=== PATIENT | male | born 1950 | race Caucasian/White ===

== ENCOUNTER 2016-08-20 07:09 | Day surgery (SDC) | payer OTHER ==
[2016-08-20] VITALS (7 sets, daily range): BP systolic 104–131; BP diastolic 61–77
[~2016-08-20] VITALS: Ht 170.2 cm; Wt 71.2 kg
[~2016-08-20 07:09] MED LIST: FLONASE ALLERG9.9 ML NS; LOSARTAN POTASS50 MG ORAL; ZOCOR20 M1 ORAL; ZYRTEC10 MG ORAL
[2016-08-20] MEDS ORDERED: ASPIR 8181 MG ORAL (07:42)
--- NOTE | 2016-08-20 07:42 | Pre-Procedure Note/Attestation ---
Pre-Procedure Note/Attestation Complete Prior to Procedure Planned Procedure: not applicable Procedure Narrative: colonoscopy Indications for Procedure Pre-Operative Diagnosis: screening Attestation I attest that I discussed the nature of the procedure; its benefits; risks and complications; and alternatives (and the risks and benefits of such alternatives ), prior to the procedure, with the patient (or the patient's legal food service representative). I attest that, if there was a reasonable possibility of needing a blood transfusion, the patient (or the patient's legal food service representative) was given the [facility] standardized written summary, pursuant to the Shai Mar-Mac Blood Safety Act ([place] Health and Safety Code # 1645, as amended). I attest that I re-evaluated the patient just prior to the surgery and that there has been no change in the patient's H&P, except as documented below: WHIT MACK August 20, 2016 07:42
--- NOTE | 2016-08-20 07:43 | Short Stay Surgery H&P ---
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 Colon Screening Patient History Allergies: Coded Allergies: No Known Allergies (Unverified , 04/17/16) PAST MEDICAL HISTORY: (1) HTN (hypertension) (2) Hypercholesteremia Past Surgeries: Social History: Medication History Scheduled Cetirizine Hcl* (Zyrtec*), 10 MG ORAL DAILY, (Reported) Fluticasone Propionate (Flonase Allergy Relief), 9.9 ML NS DAILY, (Reported) Losartan Potassium* (Losartan Potassium*), 50 MG ORAL DAILY, (Reported) Simvastatin (Zocor), 20 MG ORAL BEDTIME, (Reported) Review of Systems Cardiovascular: Reports: no symptoms Respiratory: Reports: no symptoms Skeletal: Reports: no symptoms Gastrointestinal: Reports: no symptoms Genitourinary: Reports: no symptoms Neurologic: Reports: no symptoms Endocrine: Reports: no symptoms Hematologic: Reports: no symptoms Physical Exam Skin: normal HENT: normal Heart: normal Lungs: normal Abdomen: normal Extremities: normal Plan Plan of Care colonoscopy Final Diagnosis: Attestation Are the patient's medical conditions optimized for surgery? Attestation Response: yes WHIT MACK August 20, 2016 07:43
[2016-08-20] MEDS ORDERED: LR 1000ml ONE (08:00)
[2016-08-20] MEDS ORDERED: Midazolam 2mg/2ml Inj ONE (08:00)
[2016-08-20] MEDS ORDERED: Propofol 10mg/ml 20ml IV ONE (08:00)
[2016-08-20] MEDS ORDERED: fentaNYL 100 mcg/2 mL IV ONE (08:00)
[2016-08-20] MEDS ORDERED: LR 1000ml 1,000 ML IVLG SCH (08:25)
--- NOTE | 2016-08-20 08:25 | Anethesia Preoperative Eval ---
Anesthesia Pre-op PMH/ROS General Date of Evaluation: August 20, 2016 Time of Evaluation: 08:10 Anesthesiologist: Maryan ASA Score: ASA 2 Mallampati Score Class I : Soft palate, uvula, fauces, pillars visible Class II: Soft palate, uvula, fauces visible Class III: Soft palate, base of uvula visible Class IV: Only hard plate visible Mallampati Classification: Class II Surgeon: Matias Diagnosis: Colon CA screning Surgical Procedure: Colonoscopy Anesthesia History: none Family History: no anesthesia problems Allergies: Coded Allergies: No Known Allergies (Unverified , 04/17/16) Medications: see eMAR Past Medical History Cardiovascular: Reports: HTN, Denies: CAD, TN, arrhythmia, other, valve dz Pulmonary: Denies: COPD, TONYA, asthma, other Gastrointestinal/Genitourinary: Reports: GERD, Denies: CRI, ESRD, other Neurologic/Psychiatric: Denies: CVA, TIA, dementia, depression/anxiety, other Endocrine: Denies: DM, hypothyroidism, other, steroids HEENT: Denies: [place] (L), [place] (R), cataract (L), cataract (R), glaucoma, other Hematology/Immune: Denies: DVT, anemia, bleeding disorder, other Musculoskeletal/Integumentary: Denies: DDD, DJD, OA, RA, edema, other PMH Narrative: as above PSxH Narrative: see chart Anesthesia Pre-op Phys. Exam Physician Exam Last Vital Signs Date Time Temp Pulse Resp B/P Pulse Ox O2 Delivery O2 Flow Rate FiO2 08/20/16 07:47 97.3 48 20 122/77 98 Room Air Constitutional: NAD Neurologic: CN 2-12 intact Cardiovascular: RRR, no M/R/G Respiratory: CTA Gastrointestinal: S/NT/ND Airway Exam Mallampati Score: Class II MO: full Neck: flexible ROM: full Teeth: intact Dentures: no lower, no upper Anesthesia Pre-op A/P Risk Assessment & Plan Assessment: ASA 2 Plan: JASON GARCIA M.D. August 20, 2016 08:25
[2016-08-20] MEDS ORDERED: fentaNYL 100 mcg/2 mL IV PRN (08:30)
--- NOTE | 2016-08-20 08:48 | Endoscopy Procedure Note ---
Endoscopy Procedure Note Indication for Procedure: screening colon Procedures Performed: colonoscopy Operative Findings/Diagnosis: one polyp Specimen: yes Pt Tolerated Procedure Well: Yes Estimated Blood Loss: none Anesthesiologist: christiano Anesthesia: MAC Implant(s) used?: No 50 yrs or older w/o bx or poly: Not Applicable 10yrs. F/U not recommended: Not Applicable WHIT MACK August 20, 2016 08:48
--- NOTE | 2016-08-20 10:55 | Immediate Post-Op Evaluation ---
Immediate Post-Op Evalulation Immediate Post-Op Evalulation Procedure: Colonoscopy Date of Evaluation: August 20, 2016 Time of Evaluation: 08:48 IV Fluids: 500 Blood Products: nne Estimated Blood Loss: none Urinary Output: none Blood Pressure Systolic: 104 Blood Pressure Diastolic: 58 Pulse Rate: 48 Respiratory Rate: 20 O2 Sat by Pulse Oximetry: 99 Temperature (Fahrenheit): 97.6 Pain Score (1-10): 1 Nausea: No Vomiting: No Complications none Patient Status: awake, patent, none Hydration Status: adequate JASON PATRICK M.D. August 20, 2016 10:55
--- NOTE | 2016-08-20 10:57 | 48 Hour Post Anesthesia Eval ---
Post Anesthesia Evaluation Procedure: Colonoscopy Date of Evaluation: August 20, 2016 Time of Evaluation: 10:55 Blood Pressure Systolic: 110 0: 65 Pulse Rate: 58 Respiratory Rate: 20 Temperature (Fahrenheit): 97.2 O2 Sat by Pulse Oximetry: 99 Airway: patent Nausea: No Vomiting: No Pain Intensity: 1 Hydration Status: adequate Cardiopulmonary Status: stable Mental Status/LOC: patient returned to baseline Follow-up Care/Observations: n/a Post-Anesthesia Complications: none Follow-up care needed: ready to discharge JASON PATRICK M.D. August 20, 2016 10:56
--- NOTE | 2016-08-20 21:58 | Procedure Note ---
DATE OF PROCEDURE: 08/20/2016 SURGEON: Mendoza Salcedo M.D. PROCEDURE: Colonoscopy and biopsy. ANESTHESIOLOGIST: Carl Steinberg M.D. INSTRUMENT: Olympus adult flexible colonoscope. INDICATION: Screening colonoscopy evaluation. REASON FOR PROCEDURE: The procedure, risks, benefits, and possible consequences, including hemorrhage, aspiration, perforation and infection, and alternative treatments, were explained to the patient/legal guardian by Dr. Mendoza Salcedo and the patient/legal guardian understood and accepted these risks. DESCRIPTION OF PROCEDURE: After informed consent was obtained and the patient was adequately sedated, first rectal exam was performed which was normal. Then, the scope was advanced from the rectum into the cecum, then subsequently terminal ileum. Quality of prep was good. The patient had normal terminal ileum mucosa, no obvious polyp or mass was seen in the terminal ileum. At this time, the scope was gradually retrieved and colonic mucosa was carefully examined. The patient had one diminutive polyp in the descending colon, which was removed with cold biopsy forceps technique. Otherwise, the rest of colonoscopy exam was grossly within normal limits. Retroflexion of rectum showed evidence of internal hemorrhoids. FINDINGS: 1. Normal colonoscopy examination except for one small polyp in the descending colon. 2. Internal hemorrhoids. RECOMMENDATIONS: 1. Follow up biopsy results and treat accordingly. 2. We will recommend repeat colonoscopy in 5 years given the one polyp. 3. Given internal hemorrhoids, we will treat if symptomatic. I want to thank Dr. Jacquelin Kim for this kind referral. Mendoza Salcedo M.D. DR: Wayne JOB#: [id number] CC: Jacquelin Kim M.D.; Fax#: [phone]
== END 2016-08-20 09:55 | disposition home or self-care (01) ==
LOC: GAS 07:09
DX: Z12.11 Encounter for screening for malignant neoplasm of colon (principal); D12.4 Benign neoplasm of descending colon; K64.8 Other hemorrhoids; I10 Essential (primary) hypertension; E78.00 Pure hypercholesterolemia, unspecified; K21.9 Gastro-esophageal reflux disease without esophagitis
CPT/HCPCS: 45380; J2250; J2704; J3010; J7120; 94003; 94150